=== PATIENT | female | born 1945 | race Caucasian/White ===

== ENCOUNTER 2019-05-21 07:13 | Emergency (ER) | payer MEDICARE ==
[~2019-05-21] VITALS: Ht 167.6 cm; Wt 105.0 kg
[2019-05-21 07:55] VITALS: BP 107/79
[2019-05-21 08:07] LABS: BASOPHILS # (AUTO) 0.1 X10'3 (0-0.2); BASOPHILS % (AUTO) 0.9 % (0-1); EOSINOPHILS # (AUTO) 0.2 X10'3 (0-0.9); EOSINOPHILS % (AUTO) 3.2 % (0-6); HEMATOCRIT 41.1 % (35.0-45.0); HEMOGLOBIN 13.7 g/dl (12.0-16.0); LYMPHOCYTES # (AUTO) 1.6 X10'3 (1.1-4.8); LYMPHOCYTES % (AUTO) 28.5 % (21-51); MEAN CORPUSCULAR HEMOGLOBIN 31.8 PG (27.0-31.0); MEAN CORPUSCULAR HGB CONC 33.3 g/dL (33.0-36.5); MEAN CORPUSCULAR VOLUME 95.5 FL (78-98); MEAN PLATELET VOLUME 9.4 FL (7.4-10.4); MONOCYTES # (AUTO) 0.5 X10'3 (0-0.9); MONOCYTES % (AUTO) 8.5 % (2-12); NEUTROPHILS # (AUTO) 3.3 X10'3 (1.8-7.7); NEUTROPHILS % (AUTO) 58.9 % (42-75); PLATELET COUNT 127 X10'3 (140-440); RED BLOOD COUNT 4.31 X10'6 (4.20-5.60); RED CELL DISTRIBUTION WIDTH 14.7 % (11.5-14.5); WHITE BLOOD COUNT 5.6 X10'3 (4.5-11.0)
[2019-05-21] MEDS ORDERED: predniSONE 20 mg tablet PO ONE (08:15)
[2019-05-21] MEDS ORDERED: ipratropium/albuterol 3ml nebule NEB ONE (08:15)
[2019-05-21 08:23] LABS: ALANINE AMINOTRANSFERASE 25 U/L (12-78); ALBUMIN 3.2 G/DL (3.4-5.0); ALBUMIN/GLOBULIN RATIO 0.9 (1.1-1.5); ALKALINE PHOSPHATASE 64 IU/L (46-116); ANION GAP 5 (8-16); ASPARTATE AMINO TRANSFERASE 14 U/L (10-37); BILIRUBIN,TOTAL 0.4 MG/DL (0.1-1.0); BLOOD UREA NITROGEN 21 MG/DL (7-18); BUN/CREATININE RATIO 23.9 (6.6-38.0); CALCIUM 8.4 MG/DL (8.5-10.1); CHLORIDE 108 MMOL/L (99-107); CREATININE 0.88 MG/DL (0.40-0.90); GLUCOSE 188 MG/DL (70-104); PARTIAL THROMBOPLASTIN TIME 43 SECONDS (22-32); POTASSIUM 4.3 MMOL/L (3.5-5.1); SODIUM 142 MMOL/L (135-145); TOTAL CARBON DIOXIDE 29.4 MMOL/L (24-32); TOTAL PROTEIN 6.9 G/DL (6.4-8.2); eGFR 63 ML/MIN
[2019-05-21] MEDS ORDERED: PRED50TA PO (09:05)
== END 2019-05-21 09:15 | disposition home or self-care (01) ==
LOC: ER 07:14
DX: J44.1 Chronic obstructive pulmonary disease with (acute) exacerbation (principal); F17.210 Nicotine dependence, cigarettes, uncomplicated; Z88.0 Allergy status to penicillin; Z79.899 Other long term (current) drug therapy
CPT/HCPCS: 36415; 71045; 80053; 83880; 85025; 85610; 85730; 93005; 94640; 94760; 99284; J7512

== ENCOUNTER 2025-06-16 11:30 | Outpatient (CLI) | payer MEDICARE ==
[~2025-06-16 11:30] MED LIST: PRED50TA PO
--- NOTE | 2025-06-16 12:30 | RADIOLOGY REPORT ---
CT Chest without intravenous contrast INDICATION: RIGHT SIDED PAIN TECHNIQUE: Multidetector spiral CT of the chest was performed from the lung apices to the upper abdomen. Axial, coronal and sagittal multiplanar reformats were performed. Radiation Dose : 1. Chest: CTDI volume is 17.4 mGy. Dose-length product is 688 mGy*cm The dose indicators for CT are the volume Computed Tomography (CT) Dose Index (CTDIvol) and the Dose Length Product (DLP), and are measured in units of mGy and mGy-cm, respectively. These indicators are not patient dose, but values generated from the CT scanner acquisition factors. The report includes radiation exposure data for exposures received during this examination. Comparison: None Findings: Lower neck: Normal thyroid. Lungs: No focal consolidation. 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 Lymph Nodes: No adenopathy Pleura: No pleural effusion or significant pneumothorax. Musculoskeletal: No acute osseous abnormality. Soft tissues: Normal. Upper abdomen: Status post cholecystectomy IMPRESSION: 1. No acute thoracic abnormalities. 2. 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 Radiation optimization: All CT scans at this facility use at least one of these dose optimization techniques: automated exposure control mA and/or kV adjustment per patient size (includes targeted exams where dose is matched to clinical indication) or iterative reconstruction.
== END 2025-06-16 23:59 | disposition home or self-care (01) ==
LOC: RAD 11:30
PROVIDERS: ATTEND Nurse Practitioner Family
DX: I71.21 Aneurysm of the ascending aorta, without rupture (principal); R07.9 Chest pain, unspecified
CPT/HCPCS: 71250